=== PATIENT | female | born 1945 | race Caucasian/White ===

== ENCOUNTER → 2016-12-15 17:16 | Outpatient (CLI) | payer MEDICARE, OTHER | END | disposition home or self-care (01) | LOC: D.MAMMO 11:30 | DX: Z12.31 Encounter for screening mammogram for malignant neoplasm of breast (principal) ==

== ENCOUNTER 2018-02-18 05:38 | Day surgery (SDC) | payer MEDICARE, OTHER ==
[2018-02-17 10:43] LABS: HEMATOCRIT 44.1 % (36.0-48.0); HEMOGLOBIN 14.4 g/dL (12-16); MCH 30.1 pg (26.0-34.0); MCHC 32.7 g/dL (31.0-37.0); MCV 92.3 fL (80.0-100.0); MEAN PLATELET VOLUME 11.9 fL (7.4-10.4); RBC 4.78 10x6/uL (4.00-5.40); RDW 14.8 % (11.5-14.5); WBC 4.9 10x3/uL (4.8-10.8)
[~2018-02-18] VITALS: Ht 157.5 cm; Wt 81.6 kg
--- NOTE | ~2018-02-18 | OP ---
PATIENT NAME: MICK PARSONS MEDICAL RECORD: [id number] :47 LOCATION:[facility] ADMISSION DATE: SURGEON: AURY NELSON MD DATE OF OPERATION: 02/18/2018 PREOPERATIVE DIAGNOSES: 1. Medial meniscus tear of the right knee. 2. Lateral meniscus tear of the right knee. POSTOPERATIVE DIAGNOSIS: Lateral meniscus tear of the right knee only. PROCEDURE: Arthroscopic partial lateral meniscectomy of a complex tear of the lateral meniscus. SURGEON: Aury Nelson MD ANESTHESIA: General. INTRAOPERATIVE COMPLICATIONS: None. SUMMARY OF PATHOLOGIC FINDINGS: Consistent with the preoperative diagnosis, the patient had a complex tear of the posterior horn of the lateral meniscus; however, the medial meniscus was pristine. There may have been MRI findings of intrameniscal degeneration; however, there was no evidence that the tear went to the articular surface. OPERATIVE SUMMARY IN DETAIL: After obtaining the appropriate preoperative orthopedic surgery consent as well as anesthetic consultation, evaluation and clearance, the patient was brought to the operating room and placed on the operating table in supine position. After adequate general laryngeal mask airway was administered, the right lower extremity was prepped and draped in routine sterile fashion. The leg was elevated, exsanguinated and tourniquet was inflated to 350 mmHg. Routine inferolateral portal was established, followed by superior medial portal and inferomedial portal. Diagnostic arthroscopy did reveal the above findings. Attention was turned to the lateral meniscus tear. Combination with full-radius resector as well as a meniscotome were utilized to debride the lateral meniscus back to stable lateral meniscal elements. 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 Having completed this, knee was insufflated with 30 cc of 0.25% Marcaine with epi and 80 mg of Depo-Medrol. Arthroscopy portals were closed in routine interrupted fashion using 4-0 Prolene. Sterile dressings were applied. Tourniquet was deflated. The patient was awakened and taken to the recovery room in stable condition. All final needle and sponge counts were correct. TRANSINT:[id number] Voice Confirmation ID: [id number] DOCUMENT ID: [id number] AURY NELSON MD at 1050 CC: [id number] DICTATION DATE: 02/18/18 08 WIRELINE OPERATOR: 02/18/18 1034 [facility] [address] [facility] [place] [address]
[~2018-02-18 05:38] MED LIST: ALENDRONATE SOD70 MG PO; ASMANEX0.135 GM INH; LIPITOR20 MG PO; NORVASC5 MG PO; OMEPRAZOLE40 MG PO; SINGULAIR10 MG PO; TYLENOL W/CODEI1 TAB PO
[2018-02-18 05:56] VITALS: BP 147/96; Ht 157.5 cm; Wt 81.6 kg
[2018-02-18] MEDS ORDERED: PROBIOTIC BLEN1 EACH (05:56)
[2018-02-18] MEDS ORDERED: MULTIPLE VITAMI1 TA1 PO (05:56)
[2018-02-18] MEDS ORDERED: HYDROCODONE-APA1 TAB PO (08:20)
== END 2018-02-18 11:32 | disposition home or self-care (01) ==
LOC: D.OPS 05:38 → D.PAN 09:00 → D.OPS 11:00 → D.PAN 11:00 → D.OPS 11:32
PROVIDERS: Anesthesiology
DX: S83.271A Complex tear of lateral meniscus, current injury, right knee, initial encounter (principal); S83.231A Complex tear of medial meniscus, current injury, right knee, initial encounter; I10 Essential (primary) hypertension; K21.9 Gastro-esophageal reflux disease without esophagitis; J45.909 Unspecified asthma, uncomplicated; Z01.812 Encounter for preprocedural laboratory examination

== ENCOUNTER → 2018-12-23 23:46 | Outpatient (CLI) | payer MEDICARE, OTHER ==
[2018-02-18 05:56] VITALS: BMI 33.0
[~2018-12-23 23:46] MED LIST changes: +HYDROCODONE-APA1 TAB PO; +MULTIPLE VITAMI1 TA1 PO; +PROBIOTIC BLEN1 EACH
== END | disposition home or self-care (01) ==
LOC: D.MAMMO 14:45
PROVIDERS: ATTEND Family Medicine
DX: Z12.31 Encounter for screening mammogram for malignant neoplasm of breast (principal)

== ENCOUNTER 2019-01-13 16:54 | Outpatient (CLI) | payer MEDICARE, OTHER ==
[2018-02-18 05:56] VITALS: BMI 33.0
== END 2019-01-13 16:55 | disposition home or self-care (01) ==
LOC: D.MAMMO 16:54
PROVIDERS: ATTEND Obstetrics & Gynecology
DX: R92.8 Other abnormal and inconclusive findings on diagnostic imaging of breast (principal)

== ENCOUNTER 2020-08-03 15:00 | Outpatient (CLI) | payer MEDICARE, OTHER ==
[2018-02-18 05:56] VITALS: BMI 33.0
== END 2020-08-03 16:00 | disposition home or self-care (01) ==
LOC: D.MAMMO 15:00
PROVIDERS: ATTEND Family Medicine
DX: Z12.31 Encounter for screening mammogram for malignant neoplasm of breast (principal)

== ENCOUNTER 2021-03-13 14:30 | Outpatient (CLI) | payer MEDICARE, OTHER ==
[2018-02-18 05:56] VITALS: BMI 33.0
== END 2021-03-13 23:59 | disposition home or self-care (01) ==
LOC: D.MAMMO 14:30
PROVIDERS: ATTEND Family Medicine
DX: R92.8 Other abnormal and inconclusive findings on diagnostic imaging of breast (principal)